=== PATIENT | female | born 1940 | race Caucasian/White ===

== ENCOUNTER 2017-08-23 17:29 | Inpatient (IN) | payer OTHER, MEDICARE ==
[~2017-08-23] VITALS: Ht 165.1 cm; Wt 58.5 kg
[2017-08-23 18:00] LABS: BASOPHILS # (AUTO) 0.02 x10^3/uL (0-0.1); BASOPHILS % (AUTO) 0 % (0-1); EOSINOPHILS % (AUTO) 0 % (1-7); LYMPHOCYTES # (AUTO) 1.14 x10^3/uL (1-3.4); LYMPHOCYTES % (AUTO) 17 % (22-44); MD NO; MEAN CORPUSCULAR HEMOGLOBIN 31.8 pg (27.0-34.8); MEAN CORPUSCULAR HGB CONC 33.4 g/dL (32.4-35.8); MEAN CORPUSCULAR VOLUME 95.2 fL (80-100); MEAN PLATELET VOLUME 8.6 fL (7.4-10.4); MONOCYTES # (AUTO) 0.64 x10^3/uL (0.2-0.8); MONOCYTES % (AUTO) 10 % (2-9); NEUTROPHILS # (AUTO) 4.89 x10^3/uL (1.8-6.8); NEUTROPHILS % (AUTO) 73 % (42-75); PLATELET COUNT 195 x10^3/uL (130-400); RED BLOOD COUNT 3.23 x10^6/uL (3.82-5.3); RED CELL DISTRIBUTION WIDTH 15.7 % (9.6-15.2)
[2017-08-23] MEDS ORDERED: SODIUM CHLORIDE 0.9% 1,000ML IVBOLUS ONE ×2 (18:00→19:30)
[2017-08-23] MEDS ORDERED: SODIUM CHLORIDE FLUSH 10ML SYR IVF ONE (18:00)
[2017-08-23] MEDS ORDERED: PLEASE ENTER ALLERGIES MC SCH (18:00)
[2017-08-23 18:12] LABS: D-DIMER 1.14 ug/mlFEU (0.00-0.52); INTERNATIONAL NORMALIZED RATIO 1.43 (0.93-1.1); PROTHROMBIN TIME 14.6 Seconds (9.6-11.5)
[2017-08-23 18:13] LABS: ALANINE AMINOTRANSFERASE 16 U/L (12-78); ALBUMIN 2.4 g/dL (3.4-5.0); ANION GAP 9 mmol/L (5-15); CALCIUM 7.3 mg/dL (8.5-10.1); CHLORIDE 113 mmol/L (98-107); CREATININE 0.95 mg/dL (0.55-1.02)
[2017-08-23 18:18] LABS: ALKALINE PHOSPHATASE 93 U/L (45-117); BILIRUBIN,TOTAL 0.5 mg/dL (0.2-1.0); TOTAL PROTEIN 5.2 g/dL (6.4-8.2); TROPONIN I < 0.015 ng/mL (0.000-0.045)
[2017-08-23 18:37] LABS: CULTURE INDICATED? YES; MICROSCOPIC INDICATED
[2017-08-23] MEDS ORDERED: POTASSIUM CHLORIDE 20 MEQ TAB.ER.PRT PO ONE (19:00)
[2017-08-23] MEDS ORDERED: CEFTRIAXONE PMX 1GM/50ML 50 ML IV ONE (19:00)
[2017-08-23] MEDS ORDERED: POTASSIUM CHLORIDE 40 MEQ in SODIUM CHLORIDE 0.9% 500 ML IV ONE (19:00)
[2017-08-23] MEDS ORDERED: POTASSIUM CHLORIDE 20 MEQ PACKET ONE (19:02)
[2017-08-23] MEDS ORDERED: CEFTRIAXONE PMX 1GM/50ML 50 ML ONE (19:26)
[2017-08-23] MEDS ORDERED: POLYETHYLENE GLYCOL 17 GM PACKET PO PRN (20:30)
[2017-08-23] MEDS ORDERED: hydrALAzine 20 MG/ML, 1ML IVPush PRN (20:30)
[2017-08-23] MEDS ORDERED: MAGNESIUM SULFATE PMX 4GM/100M 100 ML IV ONE (20:30)
[2017-08-23] MEDS ORDERED: DOCUSATE 100 MG CAPSULE PO PRN (20:30)
[2017-08-23] MEDS ORDERED: ONDANSETRON 2MG/ML, 2ML IVPush PRN (20:30)
[2017-08-23] MEDS ORDERED: NITROGLYCERIN 0.4 MG BOTTLE (25 TABS) SL PRN (20:30)
[2017-08-23] MEDS ORDERED: BISACODYL 10 MG SUPP PR PRN (20:30)
[2017-08-23] MEDS ORDERED: OMNIPAQUE 350 MG/ML, 100ML BOTTLE ONE (20:52)
[2017-08-23 21:48] VITALS: BP 96/61
[2017-08-23] MEDS: SODIUM CHLORIDE FLUSH 10ML SYR IVF SCH (22:41)
[2017-08-23] MEDS: HEPARIN 5,000 UNITS/ML, 1ML SQ SCH (22:42)
[2017-08-23] MEDS: CEFTRIAXONE PMX 1GM/50ML 50 ML IV SCH (22:44)
[2017-08-24 01:15] VITALS: BP 90/62
[2017-08-24 05:28] LABS: BASOPHILS # (AUTO) 0.02 x10^3/uL (0-0.1); BASOPHILS % (AUTO) 0 % (0-1); EOSINOPHILS % (AUTO) 0 % (1-7); LYMPHOCYTES % (AUTO) 16 % (22-44); MD NO; MEAN CORPUSCULAR HEMOGLOBIN 31.5 pg (27.0-34.8); MEAN CORPUSCULAR HGB CONC 33.3 g/dL (32.4-35.8); MEAN CORPUSCULAR VOLUME 94.4 fL (80-100); MEAN PLATELET VOLUME 9.4 fL (7.4-10.4); MONOCYTES % (AUTO) 12 % (2-9); NEUTROPHILS # (AUTO) 4.38 x10^3/uL (1.8-6.8); NEUTROPHILS % (AUTO) 72 % (42-75); PLATELET COUNT 178 x10^3/uL (130-400); RED BLOOD COUNT 3.13 x10^6/uL (3.82-5.3); RED CELL DISTRIBUTION WIDTH 15.5 % (9.6-15.2)
[2017-08-24 05:44] LABS: CHLORIDE 118 mmol/L (98-107)
[2017-08-24 05:53] LABS: ALANINE AMINOTRANSFERASE 15 U/L (12-78); ALBUMIN 2.2 g/dL (3.4-5.0); ALKALINE PHOSPHATASE 87 U/L (45-117); ANION GAP 10 mmol/L (5-15); BILIRUBIN,TOTAL 0.4 mg/dL (0.2-1.0); CHOL/HDL RATIO 2.5; CHOLESTEROL, TOTAL 86 mg/dL (140-239); CREATININE 0.61 mg/dL (0.55-1.02); HDL CHOL % 41 % (28-40); HDL CHOLESTEROL (DIRECT) 35 mg/dL (40-60); LDL CHOLESTEROL,CALCULATED 39 mg/dL (54-169); LDL/HDL RATIO 1.1 (0.5-3.0); TRIGLYCERIDES 62 mg/dL (50-200); VLDL CHOLESTEROL 12 mg/dL (0-25)
[2017-08-24 05:54] LABS: TROPONIN I < 0.015 ng/mL (0.000-0.045)
[2017-08-24] MEDS: ASPIRIN 325 MG TABLET EC PO SCH (05:56)
[2017-08-24 07:24] LABS: % IRON SATURATION 26 % (20-55); IRON LEVEL 39 mcg/dL (50-170); TOTAL IRON BINDING CAPACITY 151 mcg/dL (250-450)
[2017-08-24] MEDS ORDERED: POTASSIUM CHLORIDE 20 MEQ PACKET PO SCH (08:00)
[2017-08-24] MEDS: HEPARIN 5,000 UNITS/ML, 1ML SQ SCH ×2 (08:11→15:48)
[2017-08-24] MEDS: DEXTROSE 5% 1,000 ML IV SCH ×2 (08:11→15:47)
[2017-08-24] MEDS: ACETAMINOPHEN 325 MG TABLET PO PRN (08:11)
[2017-08-24] MEDS: POTASSIUM CHLORIDE 20 MEQ PACKET PO SCH ×2 (08:11→15:48)
[2017-08-24] MEDS: SODIUM CHLORIDE FLUSH 10ML SYR IVF SCH ×2 (08:12→21:16)
[2017-08-24 08:15] VITALS: BP 95/50
[2017-08-24 13:40] VITALS: BP 90/50
[2017-08-24] MEDS: CEFTRIAXONE PMX 1GM/50ML 50 ML IV SCH (21:16)
[2017-08-24 21:42] VITALS: BP 93/60
[2017-08-25] VITALS (8 sets, daily range): BP systolic 76–93; BP diastolic 36–60
[2017-08-25] MEDS ORDERED: SODIUM CHLORIDE 0.9% 1,000ML IVBOLUS ONE (00:30)
[2017-08-25] MEDS: HEPARIN 5,000 UNITS/ML, 1ML SQ SCH ×3 (00:59→17:39)
[2017-08-25] MEDS ORDERED: D5%-0.45NACL+KCL 20MEQ 1,000 ML IV SCH (02:00)
[2017-08-25] MEDS: ASPIRIN 325 MG TABLET EC PO SCH (04:59)
[2017-08-25 05:24] LABS: ALBUMIN 2.1 g/dL (3.4-5.0); ANION GAP 6 mmol/L (5-15); CALCIUM 7.3 mg/dL (8.5-10.1); CHLORIDE 116 mmol/L (98-107); CREATININE 0.48 mg/dL (0.55-1.02)
[2017-08-25] MEDS ORDERED: REGADENOSON 0.4 MG/5 ML SYRINGE ONE (08:27)
[2017-08-25] MEDS: POTASSIUM CHLORIDE 20 MEQ PACKET PO SCH (08:32)
[2017-08-25] MEDS: SODIUM CHLORIDE FLUSH 10ML SYR IVF SCH ×2 (08:33→20:09)
[2017-08-25] MEDS ORDERED: POTASSIUM PHOSPHATE 44 MEQ in SODIUM CHLORIDE 0.9% 500 ML IV ONE (15:00)
[2017-08-25] MEDS: CEFTRIAXONE PMX 1GM/50ML 50 ML IV SCH (20:09)
[2017-08-25] MEDS: ACETAMINOPHEN 325 MG TABLET PO PRN (21:45)
[2017-08-26] MEDS: HEPARIN 5,000 UNITS/ML, 1ML SQ SCH ×3 (00:36→15:49)
[2017-08-26 01:33] VITALS: BP 93/57
[2017-08-26] MEDS: ASPIRIN 325 MG TABLET EC PO SCH (04:46)
[2017-08-26 05:30] LABS: BASOPHILS # (AUTO) 0.02 x10^3/uL (0-0.1); BASOPHILS % (AUTO) 0 % (0-1); EOSINOPHILS % (AUTO) 0 % (1-7); LYMPHOCYTES # (AUTO) 1.25 x10^3/uL (1-3.4); LYMPHOCYTES % (AUTO) 20 % (22-44); MD NO; MEAN CORPUSCULAR HEMOGLOBIN 31.4 pg (27.0-34.8); MEAN CORPUSCULAR HGB CONC 33.2 g/dL (32.4-35.8); MEAN CORPUSCULAR VOLUME 94.5 fL (80-100); MEAN PLATELET VOLUME 9.5 fL (7.4-10.4); MONOCYTES # (AUTO) 0.53 x10^3/uL (0.2-0.8); MONOCYTES % (AUTO) 9 % (2-9); NEUTROPHILS # (AUTO) 4.41 x10^3/uL (1.8-6.8); NEUTROPHILS % (AUTO) 71 % (42-75); PLATELET COUNT 175 x10^3/uL (130-400); RED BLOOD COUNT 3.25 x10^6/uL (3.82-5.3); RED CELL DISTRIBUTION WIDTH 15.5 % (9.6-15.2)
[2017-08-26 05:37] LABS: ANION GAP 6 mmol/L (5-15); CALCIUM 7.3 mg/dL (8.5-10.1); CHLORIDE 115 mmol/L (98-107); CREATININE 0.45 mg/dL (0.55-1.02)
[2017-08-26 06:50] VITALS: BP 94/66
[2017-08-26] MEDS: POTASSIUM CHLORIDE 20 MEQ PACKET PO SCH (08:37)
[2017-08-26] MEDS: FERROUS GLUCONATE 324 MG TABLET PO SCH (08:37)
[2017-08-26] MEDS: SODIUM CHLORIDE FLUSH 10ML SYR IVF SCH ×2 (08:38→22:43)
[2017-08-26] MEDS ORDERED: MAGNESIUM SULFATE PMX 2GM/50ML 50 ML IV ONE (09:00)
[2017-08-26] MEDS ORDERED: POTASSIUM PHOSPHATE 44 MEQ in SODIUM CHLORIDE 0.9% 500 ML IV ONE (09:00)
[2017-08-26 14:30] VITALS: BP 98/66
[2017-08-26 20:15] VITALS: BP 93/57
[2017-08-26] MEDS: ACETAMINOPHEN 325 MG TABLET PO PRN (20:44)
[2017-08-26] MEDS: CEFTRIAXONE PMX 1GM/50ML 50 ML IV SCH (22:42)
[2017-08-27] MEDS: HEPARIN 5,000 UNITS/ML, 1ML SQ SCH ×2 (00:03→10:01)
[2017-08-27 02:48] VITALS: BP 95/59
[2017-08-27] MEDS: ACETAMINOPHEN 325 MG TABLET PO PRN (03:50)
[2017-08-27] MEDS: ASPIRIN 325 MG TABLET EC PO SCH (05:32)
[2017-08-27 06:38] VITALS: BP 97/61
[2017-08-27] MEDS ORDERED: NEUTRA PHOS K 250 MG TABLET PO SCH (09:00)
[2017-08-27] MEDS ORDERED: MAGNESIUM OXIDE 400 MG TABLET PO SCH (09:00)
[2017-08-27] MEDS: SODIUM CHLORIDE FLUSH 10ML SYR IVF SCH (09:59)
[2017-08-27] MEDS: FERROUS GLUCONATE 324 MG TABLET PO SCH (09:59)
[2017-08-27] MEDS: POTASSIUM CHLORIDE 20 MEQ PACKET PO SCH (10:00)
[2017-08-27] MEDS ORDERED: CEFD300C37 PO (12:30)
[2017-08-27] MEDS ORDERED: PHOS250T3 PO (12:30)
[2017-08-27] MEDS ORDERED: ACET325T14 PO (12:30)
[2017-08-27] MEDS ORDERED: DOCU-131 PO (12:30)
[2017-08-27] MEDS ORDERED: POTA20PA25 PO (12:30)
[2017-08-27] MEDS ORDERED: ASPI-515 PO (12:30)
[2017-08-27] MEDS ORDERED: FERR325T16 PO (12:30)
[2017-08-27] MEDS ORDERED: MAGN400T26 PO (12:30)
[2017-08-27 13:00] VITALS: BP 97/61
== END 2017-08-27 15:20 | DRG 690 ==
LOC: ED 19:09 → EDIP 19:20 → 5SO 21:29 → 3NW 08-26 20:09
PROVIDERS: ADMIT Internal Medicine; ATTEND Hospitalist
DX: N30.00 Acute cystitis without hematuria (principal); E46 Unspecified protein-calorie malnutrition; I25.89 Other forms of chronic ischemic heart disease; D64.9 Anemia, unspecified; E83.42 Hypomagnesemia; E87.6 Hypokalemia; M19.90 Unspecified osteoarthritis, unspecified site; B96.20 Unspecified Escherichia coli [E. coli] as the cause of diseases classified elsewhere; E83.39 Other disorders of phosphorus metabolism; G89.11 Acute pain due to trauma; Z68.21 Body mass index [BMI] 21.0-21.9, adult; G89.29 Other chronic pain; I95.0 Idiopathic hypotension; Z66 Do not resuscitate; Z79.82 Long term (current) use of aspirin; Z82.49 Family history of ischemic heart disease and other diseases of the circulatory system; Z87.891 Personal history of nicotine dependence; Z90.49 Acquired absence of other specified parts of digestive tract; M62.81 Muscle weakness (generalized)
CPT/HCPCS: 36415; 70450; 71045; 71275; 78452; 80048; 80053; 80061; 81001; 82040; 82533; 83540; 83550; 83605; 83735; 83880; 84100; 84145; 84443; 84484; 85025; 85379; 85610; 85730; 87040; 87077; 87086; 87186; 93005; 93017; 96365; 96375; 99291; J0696; J1644; J2785; J3480; J7070; Q9967; A9502; C9898; J3475; J7030; J7040